=== PATIENT | male | born 1965 | race Caucasian/White ===

== ENCOUNTER 2019-07-14 16:49 | Emergency (ER) | payer BC, OTHER ==
[2019-07-14 17:14] VITALS: BP 127/88; PULSE 92; TEMP 99.2
--- NOTE | 2019-07-14 17:19 | PDOC ---
Rapid Medical Evaluation Time Seen by Provider: 07/14/19 17:11 Medical Evaluation: 07/14/19 17:11 HPI: COVID-19 CDC guideline data points: The patient is a 54 y.o M with no pmhx presents with no known exposure to, suspected, or confirmed COVID-19 with associated symptoms of bubbling in his s tomach x 1 week assoc/w nausea. Patient saw pmd Dr. Dumas 1 week ago given pepicid, omeprazole and zofran (-) fever, dry cough, SOB, anorexia, or diarrhea, nl bm and eating well, ROS: NEGATIVE: difficulty breathing, shortness of breath, chest pain, lightheadedness, dizziness, nausea, vomiting and diarrhea. Other 12 point ROS reviewed and negative. Exam: General: NAD, Well-Appearing, Awake, Alert Oriented x3. Vital signs stable. ENT: No rhinorrhea or nasal congestion. Neck: FROM, no midline tenderness. Lungs: Clear to auscultation bilaterally without wheezes, rhonchi or rales. Normal excursion. Patient is able to speak in full sentences. Heart: HR: [+] Regular rhythm, S1-S2 present, no murmurs rubs or gallops. Abdomen: Non-distended. MSK/Extremities: No decrease ROM, No obvious deformities. No obvious cyanosis noted. Neuro: Normal Gait, Cranial Nerves II through XII Grossly Intact. Skin: No obvious rashes, bruising. Color Normal Appearing. Assessment/Plan: gastritis Patient has a history of this/these comorbidities: none, denies recent travel and known COVID exposure. Patient does not meet testing criteria at this time. ASSESSMENT: Denies recent travel and known Covid exposure. Treatment: continue gastritis treatment as per pmd discharge home
--- NOTE | 2019-07-14 17:43 | PDOC ---
*Physical Exam - Vital Signs Last Vital Signs Temp Pulse Resp BP Pulse Ox 99.2 F 92 H 17 127/88 100 07/14/19 17:13 07/14/19 17:13 07/14/19 17:13 07/14/19 17:13 07/14/19 17:13 Discharge - Discharge Information Problems reviewed: Yes Clinical Impression/Diagnosis: Gastritis Qualifiers: Gastritis type: unspecified gastritis Chronicity: acute Gastritis bleeding: without bleeding Qualified Code(s): K29.00 - Acute gastritis without bleeding Condition: Stable Disposition: HOME - Follow up/Referral Referrals: Elia Flaherty MD [Primary Care Provider] - - Patient Discharge Instructions Patient Printed Discharge Instructions: DI for Gastritis Additional Instructions: Follow up with pmd in 1-2 days for further management. You need a GI follow up for further studies. Return to the ED for worsening symptoms, abdominal pain, vomiting, fever, chills, - Post Discharge Activity
== END 2019-07-14 17:47 | disposition home or self-care (01) ==
LOC: JER 16:49
DX: K29.00 Acute gastritis without bleeding (principal)
CPT/HCPCS: 99282-25